=== PATIENT | male | born 1995 ===

== ENCOUNTER 2016-04-24 21:54 | Emergency (ER) | payer BC ==
[2016-04-24 22:15] VITALS: BP 137/74
--- NOTE | 2016-04-25 07:33 | RAD ---
HISTORY: Altered mental status after trauma COMPARISONS: February 19, 2014 TECHNIQUE: Multiple contiguous axial CT scans were obtained of the head without intravenous contrast. FINDINGS: HEMORRHAGE/INFARCT: There is no hemorrhage or acute infarct. MASSES/SHIFT: There is no mass or shift. EXTRA-AXIAL SPACES: There are no extra-axial fluid collections. SULCI AND VENTRICLES: The sulci and ventricles are normal in size and position for the patient's stated age. CEREBRUM: There are no focal parenchymal abnormalities. BRAINSTEM: There are no focal parenchymal abnormalities. CEREBELLUM: There are no focal parenchymal abnormalities. VESSELS: The vessels are grossly normal. PARANASAL SINUSES: The paranasal sinuses are clear. ORBITS: The orbits are unremarkable. BONES AND SOFT TISSUE: No bone or soft tissue abnormalities are noted. OTHER: None IMPRESSION: NO ACUTE INTRACRANIAL PATHOLOGY.
--- NOTE | 2016-04-25 07:36 | RAD ---
HISTORY: Right facial trauma, periorbital contusion COMPARISONS: None TECHNIQUE: Multiple contiguous axial CT scans were obtained of the face without intravenous contrast, with coronal and sagittal multiplanar reformations. FINDINGS: BONES: There is no displaced fracture or dislocation. The orbital rim is intact. The zygomatic arch is intact. The pterygoid plates are intact. The questionable left nasal fracture is felt to represent a suture. ORBITS: The globes are round. The optic nerves are symmetric. The extraocular musculature is normal. There is no post septal or intraconal inflammatory change. There is no retrobulbar hematoma. PARANASAL SINUSES: There is mucosal thickening of the right maxillary sinus. The nasal septum is slightly to the right BRAIN AND SOFT TISSUE: Unremarkable. OTHER: None. IMPRESSION: NO FACIAL FRACTURE
--- NOTE | 2016-04-25 07:39 | RAD ---
HISTORY: Trauma, altered mental status COMPARISONS: None TECHNIQUE: Multiple contiguous axial CT scans were obtained of the cervical spine without intravenous contrast, with coronal and sagittal multiplanar reformations. FINDINGS: BRAIN: The visualized brain is unremarkable CENTRAL CANAL: Evaluation of the central canal is limited on CT technique, however there is no obvious canalicular mass or epidural hemorrhage. ALIGNMENT: There is straightening of the normal cervical lordosis. VERTEBRAL BODIES: The odontoid process is intact. The atlantoaxial intervals are symmetric. The vertebral bodies are normal in attenuation, without fracture. 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 JOINTS: There is no subluxation or dislocation MUSCULATURE: Normal INTERVERTEBRAL DISCS: The intervertebral disc spaces are relatively preserved in height. AXIAL IMAGES: On axial images, there is no osseous neural foraminal narrowing or central canal stenosis. SOFT TISSUES: The visualized soft tissues of the neck are unremarkable. The prevertebral fat stripe is preserved. OTHER: None. IMPRESSION: NO ACUTE OSSEOUS INJURY TO THE CERVICAL SPINE
--- NOTE | 2016-05-05 00:37 | ED ---
john paul Garcia Timothy, scribed for Marty Martinez MD on 04/24/16 at 2302 . Head Injury - HPI Summary HPI Summary: Matt Saunders is a 21 yo male presenting to [facility] S/P a fa;; while snowboarding. He was seen by medical personnel at [facility], who sent him here. His friend present in the ED states he fell and landed on the right side of his face and then flipped before coming to a stop. Pt denies any N/V, as well as other Sx. After his fall he did not remember the fall itself, but recognized the faces of his friends. His Hx includes narcolepsy. - History Of Current Complaint Chief Complaint: EDHeadInjury Stated Complaint: FALL/HEAD INJURY Time Seen by Provider: 04/24/16 22:52 Pain Intensity: 1 Pain Scale Used: 0-10 Numeric - Allergies/Home Medications Allergies/Adverse Reactions: Allergies Allergy/AdvReac Type Severity Reaction Status Date / Time No Known Allergies Allergy Verified 02/19/14 15:15 PMH/Surg Hx/FS Hx/Imm Hx Neurological History: Reports: Other Neuro Impairments/Disorders - narcolepsy Infectious Disease History: No Infectious Disease History: Denies: Traveled Outside the [place] in Last 30 Days - Family History Known Family History: Positive: Cardiac Disease, Hypertension Negative: Diabetes - Social History Occupation: Student Lives: With Family Alcohol Use: None - um Substance Use Type: Reports: None Smoking Status (MU): Never Smoked Tobacco Review of Systems Constitutional: Negative Eyes: Negative ENT: Negative Cardiovascular: Negative Respiratory: Negative Gastrointestinal: Negative Genitourinary: Negative Musculoskeletal: Negative Skin: Negative Positive: Headache Psychological: Normal All Other Systems Reviewed And Are Negative: Yes Physical Exam - Summary Physical Exam Summary: HEENT: Head normocephalic, atraumatic. Pupils are equal, round, and reactive to light. Extraocular muscles intact. No hyphema. There is no septal hematoma. No jaw tenderness. No malalignment of teeth. No hemotympanum. There is ecchymosis around the right eye. NECK: No midline posterior cervical tenderness. CHEST: No respiratory distress, no tenderness. No crepitus. No flail chest. Lungs are clear to auscultation. CARDIAC: Regular rate and rhythm. S1, S2, no rub, no murmur, no gallop, 2+ radial and pedal pulses bilaterally SPINE: No tenderness. No step-off. ABDOMEN: Bowel sounds positive. Soft, non-tender. No seatbelt sign. PELVIS: Stable, non-tender. EXTREMITIES No deformity. Skin intact, non-tender. No significant edema. 2+ pulses in all extremities. 5/5 flexor and extensor strength. NEUROLOGICAL: Cranial nerves II-XII intact, 5/5 flexor and extensor strength in bilateral upper and lower extremities, 2+ DTR's throughout, sensation intact to light touch, negative Babinski, no pronator drift, normal finger nose finger , normal rapid alternating movements, normal sensation in all extremities Triage Information Reviewed: Yes Vital Signs On Initial Exam: Initial Vitals Temp Pulse Resp BP Pulse Ox 99.6 F 97 18 137/74 100 04/24/16 22:11 04/24/16 22:11 04/24/16 22:11 04/24/16 22:11 04/24/16 22:11 Vital Signs Reviewed: Yes Diagnostics - Vital Signs Vital Signs Temp Pulse Resp BP Pulse Ox 04/24/16 22:11 99.6 F 97 18 137/74 100 - Laboratory Lab Statement: Any lab studies that have been ordered have been reviewed, and results considered in the medical decision making process. - CT Maxillofacial CT Interpretation: Positive (See Comments) - Very slight deformity of the left nasal bone with oblique lucency noted on the coronal. This could represent a fracture but not certain. Correlate with nasal trauma. CT Interpretation Completed By: Radiologist C-Spine CT Interpretation: No Acute Changes - Negative for cerviucal fracture or malalignment CT Interpretation Completed By: Radiologist Brain CT Interpretation: No Acute Changes - Normal brain. No acute intracranial abnormality. No bleed. No visible infarct or mass. Osseous structures intact. CT Interpretation Completed By: Radiologist Re-Evaluation - Re-Evaluation First Eval Re-Evaluation Time: 00:11 Change: Unchanged Comment: Pt's condition is the same. Second Eval Re-Evaluation Time: 00:19 Change: Unchanged Comment: Clinically no nasal fracture. Head Injury Course/Dx - Diagnoses Provider Diagnoses: Concussion, Facial contusion Discharge - Discharge Plan Condition: Stable Disposition: HOME Patient Education Materials: Concussion (ED), Facial Contusion (ED) Referrals: [facility] [Primary Care Provider] - 2 Days Additional Instructions: No strenuous activity or contact sports until cleared by a physician. Follow up with [facility] regarding your concussion. The documentation as recorded by the john paul villaseñor Timothy accurately reflects the service I personally performed and the decisions made by me, Marty Martinez MD.
== END 2016-04-25 00:27 | disposition home or self-care (01) ==
LOC: ED 21:54
DX: S06.0X0A Concussion without loss of consciousness, initial encounter (principal); S00.83XA Contusion of other part of head, initial encounter; R51 Headache; W19.XXXA Unspecified fall, initial encounter; Y93.9 Activity, unspecified; Y92.9 Unspecified place or not applicable; Y99.9 Unspecified external cause status
CPT/HCPCS: 70450; 70486; 72125; 99282